=== PATIENT | female | born 1955 | race Caucasian/White ===

== ENCOUNTER → 2022-01-09 | Outpatient (CLI) | payer BC | LOC: MC.RAD 13:03 | DX: Z12.31 Encounter for screening mammogram for malignant neoplasm of breast (principal) ==

== ENCOUNTER → 2022-01-20 | Outpatient (CLI) | payer BC | LOC: COL.RAD 06:58 | DX: K44.9 Diaphragmatic hernia without obstruction or gangrene (principal); N80.9 Endometriosis, unspecified; R10.31 Right lower quadrant pain | CPT/HCPCS: Q9967 ==